=== PATIENT | female | born 1950 | race Caucasian/White ===

== ENCOUNTER 2019-07-22 13:20 | Day surgery (SDC) | payer MEDICARE, OTHER ==
[~2019-07-22] VITALS: Ht 170.2 cm; Wt 113.4 kg
--- NOTE | ~2019-07-22 | OR ---
[facility] [address], [place] [address] Draft DATE OF OPERATION: 07/22/2019 SURGEON: Silvino Ferguson MD PREOPERATIVE DIAGNOSIS: Colon screening. POSTOPERATIVE DIAGNOSES: 1. Extensive left-sided sigmoid diverticulosis. 2. Large 2.5 cm appendiceal orifice polyp. PROCEDURE PERFORMED: Total colonoscopy to cecum with hot snare polypectomy x1. ANESTHESIA: Intravenous sedation, fentanyl 150 mcg, Versed 8 mg. INDICATIONS: 69-year-old white woman rather is a patient of Dr. Polo Hernadez in [place], [place]. She is here for colon screening. She has no family history of colon cancer and no symptoms of bleeding, diarrhea, or constipation currently. She understands risks of bleeding, infection, and perforation related to colonoscopy and wished to proceed. FINDINGS: Prep was quite good. Complete colonoscopy was undertaken to the cecum. There were numerous diverticula of sigmoid and left colon. Most importantly, however, was a large polypoid lesion in the orifice of the appendix. Initially it was thought likely not resectable, with various manipulations cold morcellation biopsy could be performed and it could be withdrawn from the orifice. On that basis, hot snare polypectomy technique was used to excise it. There remained some residual lesion I think in the orifice that was not further excised for fear of causing complication based on the amount of energy required for polypectomy. DESCRIPTION OF PROCEDURE: The patient was brought to the endoscopy suite and placed in lateral decubitus position, given intravenous sedation to the point of slurred speech and nystagmus. Digital rectal examination was normal. An Olympus video colonoscope was passed in the rectum and manipulated through the sigmoid noting numerous large diverticula. Multiple diverticula are noted of the left PATIENT NAME: MATTHEW CORTEZ OPERATIVE REPORT DATE OF : 54 REPORT #: [id number] PHYSICIAN: SILVINO FERGUSON MD PCP: POLO HERNADEZ MD REPORT IS CONFIDENTIAL AND NOT TO BE RELEASED WITHOUT AUTHORIZATION [facility] [address], [place] [address] Draft colon until the scope was ultimately advanced past this to the area of the hepatic flexure, with various manipulations passed ultimately to the cecum. Within the cecum was a large polypoid lesion initially thought to be a simple cecal tumor, but with further evaluation noted to be in the appendiceal orifice. It appeared polypoid and narrow band imaging confirmed its adenomatous appearance. It was not ulcerated. Cold morcellation biopsy was obtained portions of it and with manipulations it could be withdrawn somewhat from the lumen. On that basis, a hot snare polypectomy excision was undertaken. Initial energy delivered did not allow for excision of the lesion with the blended current and therefore a cutting current was used to completely transect it. There was no untoward bleeding or other problems and no sign of complication. A Gorman Net was used to grasp the lesion. Examination of the orifice showed that there was still some residual adenomatous appearing tissue. Rather than additionally attempt morcellation, particularly given the energy delivered already, the polyp was simply withdrawn and explanted. Reintroduction of the scope was undertaken showing diverticula once again. She was uncomfortable enough and so forth that further reintroduction of the scope to the cecum again was deemed inadvisable. At minimum, the patient will be getting repeat colonoscopy in about 3 months at maximum possible cecectomy or more depending on pathologic findings of the large appendiceal orifice lesion. The patient was taken to recovery room in good condition. CONCLUSION DIAGNOSES: 1. Large adenomatous appearing lesion of the appendiceal orifice, at least 2.5 cm in size, incompletely excised probably. 2. Numerous diverticula of sigmoid. PLAN: I will have patient call next week for a definitive plan so as to save her travel from the [facility]. We will devise a plan based on pathologic findings. MD MAURA Zamarripa/YUNIERL /[id number] cc: Polo Hernadez MD PATIENT NAME: MATTHEW CORTEZ OPERATIVE REPORT DATE OF : 54 REPORT #: [id number] PHYSICIAN: SILVINO FERGUSON MD PCP: POLO HERNADEZ MD REPORT IS CONFIDENTIAL AND NOT TO BE RELEASED WITHOUT AUTHORIZATION [facility] [address] [place] [address] Draft Copies: POLO HERNADEZ MD ~ PATIENT NAME: MATTHEW CORTEZ OPERATIVE REPORT DATE OF : 54 REPORT #: [id number] PHYSICIAN: SILVINO FERGUSON MD PCP: POLO HERNADEZ MD REPORT IS CONFIDENTIAL AND NOT TO BE RELEASED WITHOUT AUTHORIZATION
[~2019-07-22 13:20] MED LIST: B COMPLEX1 EACH PO; TURMERIC 500 M1 EACH PO; VITAMIN D32000 UNI1 PO
--- NOTE | 2019-07-22 15:28 | NUR ---
07/22/19 1528 Anne Marie Lira 1510 PT ARRIVED IN PACU SLEEPY WITH NO C/O'S. 1520 DR AT BEDSIDE TALKING WITH PT. QUESTIONS ANSWERED.
--- NOTE | 2019-07-24 15:05 | PATH ---
[facility] [address], [place] [address] Signed SPECIMEN(S): A APPENDICEAL ORIFICE NEOPLASM SPECIMEN SOURCE: A. APPENDICEAL ORIFICE NEOPLASM CLINICAL HISTORY: Screening. Appendiceal orifice neoplasm. MICROSCOPIC DESCRIPTION: Histologic sections of all submitted blocks are examined by light microscopy. These findings, together with the gross examination, support the pathologic diagnosis. 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 - Negative for invasion. D[facility]:C2NR GROSS DESCRIPTION: The specimen, labeled "CJ, appendiceal orifice neoplasm," is received in formalin and consists of a 1.3 x 1.3 x 1.1 cm begum-pink, lobular polyp admixed with debris. The specimen is inked, sectioned and entirely submitted in cassette (A1). AM (under the direct supervision of a pathologist) The Gross Description was prepared using a voice recognition system. The report was reviewed for accuracy; however, sound-alike word errors, addition and/or deletions may occur. If there is any question about this report, please contact Client Services. PERFORMING LABORATORY: The technical component was performed by [facility], [address] [place] [id number] (Rv Technician: Tita Jaramillo MD; CLIA# [id number]). Professional [facility], [address] [address] (Rv Technician: Hal Anderson MD; CLIA# [id number]). Diagnostician: Bishnu Gill DO Pathologist Electronically Signed 07/24/2019 PATIENT NAME: MATTHEW CORTEZ PATHOLOGY DATE OF : 54 REPORT #: [id number] PHYSICIAN: [facility] PCP: TRUDI HERNAEDZ MD REPORT IS CONFIDENTIAL AND NOT TO BE RELEASED WITHOUT AUTHORIZATION [address] [address] Signed Copies: ~ PATIENT NAME: MATTHEW CORTEZ PATHOLOGY DATE OF : 54 REPORT #: [id number] PHYSICIAN: [facility] PCP: TRUDI HERNADEZ MD REPORT IS CONFIDENTIAL AND NOT TO BE RELEASED WITHOUT AUTHORIZATION
== END 2019-07-22 15:55 | disposition home or self-care (01) ==
LOC: OPS 13:20 → DS 14:15 → OPS 14:15
PROVIDERS: Surgery
PROC: 0DBJ8ZZ Excision of Appendix, Via Natural or Artificial Opening Endoscopic (ICD-10-PCS; principal; 2019-07-22 14:15)
DX: Z12.11 Encounter for screening for malignant neoplasm of colon (principal); D12.1 Benign neoplasm of appendix; K57.30 Diverticulosis of large intestine without perforation or abscess without bleeding; K21.9 Gastro-esophageal reflux disease without esophagitis; G47.30 Sleep apnea, unspecified; E66.01 Morbid (severe) obesity due to excess calories; K21.0 Gastro-esophageal reflux disease with esophagitis; Z88.5 Allergy status to narcotic agent; Z68.39 Body mass index [BMI] 39.0-39.9, adult
CPT/HCPCS: 99153; G0500; J2250; J3010; J7121